=== PATIENT | male | born 1945 | race Caucasian/White ===

== ENCOUNTER → 2023-05-04 15:36 | Outpatient (CLI) | payer MEDICARE, SELFPAY ==
--- NOTE | 2023-05-04 | DI.MRI.S_ITS ---
PROCEDURE: MR LUMBAR SPINE WO CON INDICATIONS: SPINAL STENOSIS,LUMBAR REGION TECHNIQUE: Noncontrast sagittal T1 spin echo and T2 fast echo, sagittal STIR, and T2 fast spin echo through the lumbar spine. In cases with scoliosis, additional coronal T2 fast spin echo may be performed. COMPARISON: [facility], CR, XR LUMBAR SPINE 2 OR 3 VIEWS, 04/16/2023, 10:55. FINDINGS: Image quality: Excellent. Alignment and Curvature: There is normal bony alignment. Bone Marrow: Hyperintense STIR signal is seen throughout the L4 vertebral body and extending into the right pedicle. At the level of L4 there is a space occupying epidural lesion which demonstrates hyperintense T2 signal and isointense T1 signal consistent with fluid. This protrudes into the right lateral recess and indents the anterior thecal sac. Spinal Cord: Conus medullaris terminates at the L1 level. Visualized cord demonstrates normal signal and size Paraspinous Soft Tissues: No paravertebral masses. T12-L1: No significant disc bulge. The foramina and central canal are patent. L1-L2: The disc is desiccated. Disc space narrowing and diffuse disc bulge causes mild bilateral foraminal stenosis. The central canal has mild stenosis. L2-L3: The disc is desiccated. Disc space narrowing and diffuse disc bulge causes mild bilateral foraminal stenosis. The central canal has mild stenosis. L3-L4: The disc is desiccated. Disc space narrowing and diffuse disc bulge causes mild bilateral foraminal stenosis. The central canal has mild stenosis. L4-L5: The disc is desiccated. Diffuse disc bulge and facet hypertrophy causes severe right and moderate left foraminal stenosis. Epidural fluid collection indents the anterior thecal sac as detailed above. There is moderate central canal stenosis at the level of L5. L5-S1: Near complete loss of the disc space with endplate degenerative changes and disc osteophytes cause mild bilateral foraminal stenosis. The central canal is patent. IMPRESSION: 1. Abnormal signal of the L4 vertebral body extending into the right pedicle. 2. Epidural fluid collection in the right paracentral space indenting the anterior thecal sac and causing moderate central canal stenosis. 3. Differential diagnosis includes fracture, however given the abnormal signal of the entire vertebral body extending into the right pedicle, neoplasm is of concern. The epidural fluid collection is either hematoma or simple fluid or less likely extruded disc. Recommend MRI with contrast to better evaluate. A message was left with Dr. Cardona. Dictated by: Rj Alejandro M.D. on 05/05/2023 at 11:07 Approved by: Rj Alejandro M.D. on 05/05/2023 at 11:33
== END ==
PROVIDERS: PCP Internal Medicine; Referring Provider Physical Medicine & Rehabilitation; Visit Provider Physical Medicine & Rehabilitation
DX: M48.062 Spinal stenosis, lumbar region with neurogenic claudication (principal)
CPT/HCPCS: 72148

== ENCOUNTER → 2023-05-07 16:31 | Outpatient (CLI) | payer MEDICARE, SELFPAY ==
--- NOTE | 2023-05-07 16:32 | DI.MRI.S_ITS ---
PROCEDURE: MR LUMBAR SPINE W CON INDICATIONS: Spinal stenosis, lumbar region TECHNIQUE: Noncontrast images were recently performed and not repeated. For this study, axial T1 weighted images were acquired, as well as postcontrast axial and coronal fat saturated images through the lumbar spine. COMPARISON: [facility], MR, MR LUMBAR SPINE WO CON, 05/04/2023, 16:05. FINDINGS: Image quality: Excellent. The L4 vertebral body is abnormal, with abnormal enhancement seen throughout the vertebral body. The abnormal enhancement continues posteriorly to involve the right pedicle, as on series 5, image 23. There is abnormal enhancing soft tissue material seen posterior to the vertebral body, with associated moderate to severe central narrowing. No other areas of significant enhancement can be seen IMPRESSION: Neoplasm until proven otherwise involving the L4 vertebral body, with abnormal enhancement seen, including involving the right pedicle. There is also abnormally enhancing soft tissue seen posterior to the L4 vertebral body, with associated moderate to severe central canal narrowing, which is attributed to additional neoplasm. An epidural abscess is possible, yet considered less likely based upon these imaging findings. Please correlate with known patient history and laboratory values. Dictated by: Sam Becker M.D. on 05/07/2023 at 18:17 Approved by: Sam Becker M.D. on 05/07/2023 at 18:21
== END ==
PROVIDERS: PCP Internal Medicine; Referring Provider Physical Medicine & Rehabilitation; Visit Provider Physical Medicine & Rehabilitation
DX: M48.062 Spinal stenosis, lumbar region with neurogenic claudication (principal); D49.2 Neoplasm of unspecified behavior of bone, soft tissue, and skin
CPT/HCPCS: 72149

== ENCOUNTER → 2023-08-11 14:09 | Outpatient (CLI) | payer MEDICARE, SELFPAY ==
[2023-08-11 14:55] LABS: Hematocrit 44.8 % (41-53); Hemoglobin 15.5 g/dL (13.5-17.5); Mean Corpuscular HGB Conc 34.7 % (30-36); Mean Corpuscular Hemoglobin 30.4 PG (26-34); Mean Corpuscular Volume 87.6 fL (80-100); Platelet Count 179 X10^3/uL (150-400); Red Blood Cell Count 5.11 X10^6/uL (4.5-5.9); Red Cell Distribution Width 15.1 % (11.6-14.8); White Blood Cell Count 10.1 X10^3/uL (4.5-11.0)
[2023-08-11 15:03] LABS: Alanine Aminotransferase 50 IU/L (<50); Albumin 3.7 g/dL (3.5-5.0); Albumin Globulin Ratio 1.5 (1.0-2.8); Alkaline Phosphatase 81 U/L (38-126); Aspartate Aminotransferase 27 IU/L (17-59); BUN Creatinine Ratio 26.4 (6-22); Bilirubin Total 0.6 mg/dL (0.2-1.3); Blood Urea Nitrogen 24 mg/dL (9-20); Calcium 9.3 mg/dL (8.4-10.2); Carbon Dioxide 26 mmol/L (22-32); Chloride 102 mmol/L (98-107); Estimated Glomerular Filt Rate > 60 mL/min (>60); Globulin 2.5 g/dL (1.7-4.1); Glucose 110 mg/dL (80-110); HEMOLYSIS 24 (0-50); Potassium 4.2 mmol/L (3.4-5.1); Sodium 134 mmol/L (137-145); Total Protein 6.2 g/dL (6.3-8.2)
[2023-08-11 15:19] LABS: Add Manual Diff / Slide Review YES
[2023-08-11 15:21] LABS: Neutrophils Absolute Manual 8787 /uL (3000-5900); Total Cells Counted 100
[2023-08-11 15:22] LABS: RBC Morphology Normal Morphology
== END ==
PROVIDERS: PCP Internal Medicine; Referring Provider Internal Medicine Hematology & Oncology; Visit Provider Internal Medicine Hematology & Oncology
DX: C79.51 Secondary malignant neoplasm of bone (principal); C80.1 Malignant (primary) neoplasm, unspecified
CPT/HCPCS: 36415; 80053; 85007; 85025

== ENCOUNTER → 2023-09-22 09:32 | Outpatient (CLI) | payer MEDICARE, SELFPAY ==
--- NOTE | 2023-09-22 | DI.CT.S_ITS ---
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 Coronal and sagittal reformats were performed. For radiation dose reduction, the following was used: automated exposure control, adjustment of mA and/or kV according to patient size. COMPARISON: None. FINDINGS: Image quality: Excellent. CHEST: Lower Neck: No enlarged lymph nodes. Thyroid: Within normal limits. Axillae: No enlarged lymph nodes. Chest Wall: Unremarkable. Lungs and Airways: No consolidation or suspicious nodules. A few regions of atelectasis. Pleura: No pneumothorax or pleural effusions. Heart: Heart size is normal. No pericardial effusion. Thoracic Vessels: The aorta and pulmonary arteries demonstrate normal size. Mediastinum and Love: No enlarged lymph nodes. Esophagus: No wall thickening. No hiatal hernia. ABDOMEN: Liver: Scattered subcentimeter hypoattenuating liver lesions, too small to characterize by CT. Gallbladder: No radiopaque gallstones or wall thickening. Biliary ducts: No biliary dilation. Pancreas: No ductal dilation. Spleen: Size is within normal limits. Adrenal Glands: No adrenal nodules. Kidneys and Ureters: No hydronephrosis. No solid mass. No complex renal cystic lesion which requires follow up. Stomach and Bowel: Normal colonic caliber, without significant wall thickening. Peritoneum: No abnormal intraperitoneal fluid. No free air. Ventral Wall: No hernia. Abdominal Nodes: No retroperitoneal or mesenteric adenopathy by size criteria. Vessels: Aorta and inferior vena cava are normal in size. PELVIS: Pelvic Organs: Unremarkable. Bladder: Unremarkable. Pelvic Nodes: No enlarged lymph nodes. Miscellaneous: No inguinal hernias are seen. Bones: Sclerotic appearance of the L4 vertebral body, without measurable soft tissue component. Small dense focus in the T4 vertebral body (series 7, image 35). IMPRESSION: Sclerotic appearance of the L4 vertebral body, without measurable soft tissue component, concerning for malignancy. There is an additional small dense focus within the T4 vertebral body, which could represent a small bone island or represent a 2nd focus of malignancy. Differential for this process includes primary bone lesions such as multiple myeloma, or metastatic prostate cancer in this age group. Consider correlation with PSA and L4 biopsy. Dictated by: Migel Murrell M.D. on 09/22/2023 at 11:02 Approved by: Migel Murrell M.D. on 09/22/2023 at 11:08
[2023-09-22 10:52] LABS: Estimated Glomerular Filt Rate > 60 mL/min (>60)
== END ==
PROVIDERS: Radiology Diagnostic Radiology; PCP Internal Medicine; Referring Provider Internal Medicine Hematology & Oncology; Visit Provider Internal Medicine Hematology & Oncology
DX: C49.9 Malignant neoplasm of connective and soft tissue, unspecified (principal); C79.51 Secondary malignant neoplasm of bone
CPT/HCPCS: 36415; 71260; 74177; 82565; Q9967

== ENCOUNTER → 2024-01-12 08:05 | Outpatient (CLI) | payer MEDICARE, OTHER, SELFPAY ==
[2024-01-12 09:23] LABS: Add Manual Diff / Slide Review NO; Basophils Absolute Auto 0 /uL (0-100); Basophils Percent Auto 0.5 % (0-2); Eosinophils Absolute Auto 0 /uL (0-450); Eosinophils Percent Auto 0.2 % (2-4); Hematocrit 45.9 % (41-53); Hemoglobin 15.3 g/dL (13.5-17.5); Lymphocytes Absolute Auto 700 /uL (1100-4500); Lymphocytes Percent Auto 8.9 % (25-40); Mean Corpuscular HGB Conc 33.2 % (30-36); Mean Corpuscular Hemoglobin 28.9 PG (26-34); Mean Corpuscular Volume 86.9 fL (80-100); Monocytes Absolute Auto 500 /uL (0-900); Neutrophils Absolute Auto 7000 /uL (1500-7000); Neutrophils Percent Auto 84.4 % (50-75); Platelet Count 238 X10^3/uL (150-400); Red Blood Cell Count 5.29 X10^6/uL (4.5-5.9); Red Cell Distribution Width 14.3 % (11.6-14.8); White Blood Cell Count 8.2 X10^3/uL (4.5-11.0)
[2024-01-12 10:03] LABS: Alanine Aminotransferase 27 IU/L (<50); Albumin 3.9 g/dL (3.5-5.0); Albumin Globulin Ratio 1.7 (1.0-2.8); Alkaline Phosphatase 68 U/L (38-126); Aspartate Aminotransferase 29 IU/L (17-59); Bilirubin Total 1.4 mg/dL (0.2-1.3); Blood Urea Nitrogen 19 mg/dL (9-20); Calcium 9.3 mg/dL (8.4-10.2); Carbon Dioxide 24 mmol/L (22-32); Chloride 107 mmol/L (98-107); Estimated Glomerular Filt Rate > 60 mL/min (>60); Globulin 2.3 g/dL (1.7-4.1); Glucose 95 mg/dL (80-110); HEMOLYSIS < 15 (0-50); Lactate Dehydrogenase 200 U/L (120-246); Potassium 4.3 mmol/L (3.4-5.1); Sodium 137 mmol/L (137-145); Total Protein 6.2 g/dL (6.3-8.2)
== END ==
PROVIDERS: PCP Internal Medicine; Referring Provider Internal Medicine Hematology & Oncology; Visit Provider Internal Medicine Hematology & Oncology
DX: C80.1 Malignant (primary) neoplasm, unspecified (principal)
CPT/HCPCS: 36415; 80053; 83615; 85025

== ENCOUNTER → 2024-07-24 13:38 | Outpatient (CLI) | payer MEDICARE, OTHER, SELFPAY ==
[2024-07-24 14:54] LABS: Add Manual Diff / Slide Review NO; Basophils Absolute Auto 0 /uL (0-100); Basophils Percent Auto 0.6 % (0-2); Eosinophils Absolute Auto 0 /uL (0-450); Eosinophils Percent Auto 0.7 % (2-4); Hematocrit 43.6 % (41-53); Hemoglobin 14.6 g/dL (13.5-17.5); Lymphocytes Absolute Auto 1000 /uL (1100-4500); Lymphocytes Percent Auto 15.1 % (25-40); Mean Corpuscular HGB Conc 33.4 % (30-36); Mean Corpuscular Hemoglobin 29.2 PG (26-34); Mean Corpuscular Volume 87.5 fL (80-100); Monocytes Absolute Auto 400 /uL (0-900); Monocytes Percent Auto 6.7 % (3-14); Neutrophils Absolute Auto 5000 /uL (1500-7000); Neutrophils Percent Auto 76.9 % (50-75); Platelet Count 221 X10^3/uL (150-400); Red Blood Cell Count 4.99 X10^6/uL (4.5-5.9); Red Cell Distribution Width 14.6 % (11.6-14.8); White Blood Cell Count 6.6 X10^3/uL (4.5-11.0)
[2024-07-24 15:17] LABS: Alanine Aminotransferase 21 IU/L (<50); Albumin Globulin Ratio 1.8 (1.0-2.8); Alkaline Phosphatase 58 U/L (38-126); Aspartate Aminotransferase 23 IU/L (17-59); BUN Creatinine Ratio 15.5 (6-22); Bilirubin Total 1.1 mg/dL (0.2-1.3); Blood Urea Nitrogen 17 mg/dL (9-20); Calcium 9.1 mg/dL (8.4-10.2); Carbon Dioxide 29 mmol/L (22-32); Chloride 103 mmol/L (98-107); Estimated Glomerular Filt Rate > 60 mL/min (>60); Globulin 2.2 g/dL (1.7-4.1); Glucose 85 mg/dL (80-110); HEMOLYSIS < 15 (0-50); Lactate Dehydrogenase 158 U/L (120-246); Potassium 3.7 mmol/L (3.4-5.1); Sodium 140 mmol/L (137-145); Total Protein 6.2 g/dL (6.3-8.2)
== END ==
PROVIDERS: Referring Provider Internal Medicine Hematology & Oncology; Visit Provider Internal Medicine Hematology & Oncology
DX: C79.51 Secondary malignant neoplasm of bone (principal)
CPT/HCPCS: 36415; 80053; 83615; 85025

== ENCOUNTER → 2025-02-26 09:20 | Outpatient (CLI) | payer MEDICARE, OTHER, SELFPAY ==
--- NOTE | 2025-02-26 09:22 | DI.CT.S_ITS ---
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 5 mm coronal and sagittal reformats were performed, with additional 7 mm MIP reformats through the lungs. For radiation dose reduction, the following was used: automated exposure control, adjustment of mA and/or kV according to patient size. COMPARISON: [facility], [place], [place] PET CT FUSION WHOLE BODY, 08/30/2024, 15:23. [facility], CT, CT CHEST ABD PEL W CON, 09/22/2023, 11:12. FINDINGS: Image quality: Excellent. CHEST: Lower Neck: No enlarged lymph nodes. Thyroid: No thyroid nodules which require sonographic follow up, per consensus guidelines. Axillae: No enlarged lymph nodes. Chest Wall: Unremarkable. Lungs and Pleura: No pneumothorax or pleural effusions. Stable pulmonary micro nodules, largest measuring 3 mm in the left lower lobe (series 5, image 256). New 1.3 x 0.9 cm part solid nodule in the medial left lower lobe (series 5, image 226). The solid component measures 2 mm. Heart: Heart size is normal. No pericardial effusion. Thoracic Vessels: The aorta and pulmonary arteries demonstrate normal size. Mediastinum and Love: No enlarged lymph nodes. Esophagus: No wall thickening. No hiatal hernia. ABDOMEN: Liver: No solid mass. Slight interval growth of a few hypoattenuating liver lesions. For instance, the 1.2 cm lesion in segment 6 previously measured 0.8 cm (series 2, image 124). Gallbladder: No radiopaque gallstones or wall thickening. Biliary ducts: No biliary dilation. Pancreas: No ductal dilation. Spleen: Size is within normal limits. Adrenal Glands: No adrenal nodules. Kidneys and Ureters: No hydronephrosis. No solid mass. No complex renal cystic lesion which requires follow up. Stomach and Bowel: Normal colonic caliber, without significant wall thickening. Peritoneum: No abnormal intraperitoneal fluid. No free air. Ventral Wall: No significant ventral hernia. Abdominal Nodes: No retroperitoneal or mesenteric adenopathy by size criteria. Vessels: Aorta and inferior vena cava are normal in size. PELVIS: Pelvic Organs: Unremarkable. Bladder: No bladder wall thickening, accounting for underdistention. Pelvic Nodes: No enlarged lymph nodes. Miscellaneous: No inguinal hernias are seen. Bones: Stable sclerosis of the L4 vertebral body, without soft tissue mass. Similar dense focus in the T4 vertebral body (series 4, image 71) IMPRESSION: Similar sclerosis of the L4 vertebral body, without soft tissue mass or pathologic fracture. Stable punctate dense focus of the T4 vertebral body, probably a bone island. Slight interval growth of a few hypoattenuating liver lesions. These have fluid attenuation, favoring benign cysts but growth may indicate underlying malignancy. Consider MRI with contrast (hepatic mass protocol with Eovist) for complete characterization. Dictated by: Migel Murrell M.D. on 02/26/2025 at 13:08 Approved by: Migel Murrell M.D. on 02/26/2025 at 13:21
[2025-02-26 09:50] LABS: Estimated Glomerular Filt Rate > 60 mL/min (>60)
== END ==
LOC: CT 09:21
PROVIDERS: Referring Provider Internal Medicine Hematology & Oncology; Visit Provider Internal Medicine Hematology & Oncology
DX: C79.51 Secondary malignant neoplasm of bone (principal); C80.1 Malignant (primary) neoplasm, unspecified
CPT/HCPCS: 36415; 71260; 74177; 82565; Q9967

== ENCOUNTER → 2025-03-08 07:51 | Outpatient (CLI) | payer MEDICARE, OTHER, SELFPAY ==
--- NOTE | 2025-03-08 07:53 | DI.MRI.S_ITS ---
PROCEDURE: MR HIP RT WO/W CON INDICATIONS: cancer to spine,hx steroid therapy,hip pain rt TECHNIQUE: Noncontrast coronal T1 spin echo and STIR through the bony pelvis. Coronal and axial T2 fast spin echo with fat saturation, axial T1 spin echo with fat saturation, sagittal T1 spin echo, and oblique axial T2 fast spin echo with fat saturation through the hip. Post-contrast axial, coronal, and sagittal spin echo with fat saturation through the hip. COMPARISON: [place], [place], [place] PET CT FUSION WHOLE BODY, 08/30/2024, 15:23. [place], [place] PET CT FUSION WHOLE BODY, 01/12/2024, 9:52. [facility], CT, CT CHEST ABD PEL W CON, 02/26/2025, 10:59. FINDINGS: Image quality: Excellent. Bones and joints: There is diffuse marrow edema involving L4 vertebral body incompletely evaluated on this MRI of right hip study. No other suspicious intraosseous lesion or intraosseous enhancement. No fracture or dislocation. [id number] bilateral hip joint osteoarthritic changes are seen. No evidence of avascular necrosis of femoral heads. Slight prominence of right femoral head neck junction with subcortical cystic area which can be seen associated with CAM type femoral acetabular impingement. Tendons and ligaments: Mild distal right gluteus medius and minimus tendinosis is seen. No fluid distension of trochanteric bursa. The nearby proximal iliotibial band also appears intact. The iliopsoas tendon appears intact, without adjacent bursal fluid collections or evidence for impingement syndrome. The origin of the hamstring tendon is intact at the ischial tuberosity. Labrum and cartilage: Subtle signal abnormality and fraying involving superior anterior right acetabular labrum suggestive of subtle superior anterior labral tear. Thinning of articulating cartilage over right femoral head is seen. Soft tissues: No suspicious soft tissue enhancement. Visualized muscles demonstrate normal bulk and internal signal. Quadratus femoris muscle demonstrates no internal edema to suggest ischiofemoral impingement. The proximal sciatic neurovascular bundle appears normal adjacent to the hamstring tendons. No free pelvic fluid. Bladder wall thickness is normal. Genitourinary structures and bowel loops appear normal where visualized. IMPRESSION: 1. Finding is consistent with patient's known metastatic disease involving L4 vertebral body. No evidence of metastatic disease in pelvis or bilateral hips. No acute pelvic or hip fracture. No evidence of avascular necrosis of femoral heads. Prominence of superior anterior right femoral head neck junction which can be seen associated with CAM type femoral acetabular impingement. No area of abnormal intraosseous enhancement. 2. Distal right gluteus medius and minimus tendinosis. No other muscle or tendon signal abnormalities. No enhancing soft tissue mass or drainable fluid collection. 3. Suggestion of superior anterior right acetabular labral tear. Dictated by: Zhang Sparks M.D. on 03/08/2025 at 13:31 Approved by: Zhang Sparks M.D. on 03/08/2025 at 13:51
== END ==
PROVIDERS: Referring Provider Student in an Organized Health Care Education/Training Program; Visit Provider Student in an Organized Health Care Education/Training Program
DX: C79.51 Secondary malignant neoplasm of bone (principal); M25.551 Pain in right hip; R26.9 Unspecified abnormalities of gait and mobility; Z92.241 Personal history of systemic steroid therapy
CPT/HCPCS: 73723; A9579